=== PATIENT | male | born 1995 | race Caucasian/White ===

== ENCOUNTER → 2018-05-13 | Outpatient (REF) | payer OTHER ==
[2018-05-13 09:51] LABS: SEMEN APPEARANCE OPAQUE (OPAQUE); SEMEN VISCOSITY LIQUID (LIQUID); SEMEN VOLUME 2.8 ml (4.0-5.0); SEMEN pH 8.5 (7.0-8.0); SPERM ABNORMAL FORMS OTHER (SPECIFIY)
[2018-05-13 09:52] LABS: SPERM CONCENTRATION 90.3 M/ml (>=15.0); WBC CONCENTRATION <=1 M/ml (<=1 M/ml)
[2018-05-13 10:13] LABS: NON PROGRESSIVE MOTILITY (c) 7 %; PROGRESSIVE MOTILITY (a) 38 % (>=32); TOTAL MOTILITY 45 % (>=40)
[2018-05-13 10:26] LABS: % NORMAL FORMS 9 % (>=4); IMMOTILITY 55 %; SPERM# 252.8 M/Ejac (>=39); TOTAL PROGRESSIVE SPERM 96.1 M/Ejac.
== END ==
LOC: M LAB REF 09:13
DX: N46.8 Other male infertility (principal)

== ENCOUNTER 2018-06-28 12:47 | Emergency (ER) | payer OTHER | END 2018-06-28 15:25 | disposition home or self-care (01) | LOC: M ED 12:47 | DX: M25.561 Pain in right knee (principal); M25.562 Pain in left knee | CPT/HCPCS: 73564 ==

== ENCOUNTER 2018-08-20 18:55 | Emergency (ER) | payer OTHER ==
[2018-08-20 19:49] LABS: HEMOGLOBIN 15.9 g/dl (13.5-17.5); MEAN CORPUSCULAR HEMOGLOBIN 28.8 pg (27.0-33.0); MEAN CORPUSCULAR HGB CONC 34.6 g/dl (32.0-36.5); MEAN CORPUSCULAR VOLUME 83.3 fl (80.0-96.0); PLATELET COUNT, AUTOMATED 239 10^3/uL (150-450); RED BLOOD COUNT 5.52 10^6/uL (4.30-6.10); WHITE BLOOD COUNT 6.2 10^3/uL (4.0-10.0)
[2018-08-20 20:19] LABS: ACETAMINOPHEN LEVEL < 2.0 UG/ML (10.0-30.0); ALBUMIN 4.3 GM/DL (3.2-5.2); ALT/SGPT 57 U/L (12-78); BILIRUBIN,DIRECT 0.2 MG/DL (0.0-0.2); BILIRUBIN,TOTAL 0.5 MG/DL (0.2-1.0); BLOOD UREA NITROGEN 12 MG/DL (7-18); CALCIUM LEVEL 9.2 MG/DL (8.5-10.1); CARBON DIOXIDE LEVEL 29 MEQ/L (21-32); CHLORIDE LEVEL 107 MEQ/L (98-107); ETHYL ALCOHOL (ETHANOL) < 0.003 % (0.000-0.010); GLOMERULAR FILTRATION RATE > 60.0 (>60); GLUCOSE, FASTING 98 MG/DL (70-100); POTASSIUM SERUM 3.8 MEQ/L (3.5-5.1); SALICYLATE LEVEL < 1.7 MG/DL (5.0-30.0); SODIUM LEVEL 141 MEQ/L (136-145)
[2018-08-20 20:31] LABS: AMPHETAMINES LEVEL URINE NEGATIVE (NEGATIVE); BARBITURATES URINE NEGATIVE (NEGATIVE); BENZODIAZEPINES URINE NEGATIVE (NEGATIVE); CANNABINOIDS URINE NEGATIVE (NEGATIVE); COCAINE METABOLITE URINE NEGATIVE (NEGATIVE); METHADONE URINE NEGATIVE (NEGATIVE); OPIATES URINE NEGATIVE (NEGATIVE); PHENCYCLIDINE URINE NEGATIVE (NEGATIVE)
[2018-08-20 21:36] VITALS: BP 139/88
== END 2018-08-20 21:37 | disposition home or self-care (01) ==
LOC: M ED 18:55
DX: F43.20 Adjustment disorder, unspecified (principal); Z87.891 Personal history of nicotine dependence
CPT/HCPCS: 36415; 80048; 80076; 80307; 84443; 85027; 99284; G0480